=== PATIENT | female | born 1955 | race Caucasian/White ===

== ENCOUNTER → 2017-01-26 | Day surgery (SDC) | payer OTHER ==
--- NOTE | 2017-01-25 09:33 | PREOPHP ---
DATE OF ADMISSION: 01/26/2017 HISTORY OF PRESENT ILLNESS: This 61-year-old patient is admitted for elective cataract surgery of t he right eye. The patient has had decreased vision over the past 6 months, which has been progressi ve in nature without prior history of eye disease or injury. 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 This diagnosis is somewhat questionable, but patient remains o n Timolol and latanoprost drops in both eyes. The patient's systemic history is positive for nonins ulin dependent diabetes mellitus and systemic hypertension. CURRENT MEDICATIONS INCLUDE: 1. Metformin. 2. Benazepril. ALLERGIES: THERE ARE NO KNOWN ALLERGIES. PHYSICAL EXAMINATION: Visual acuity with best correction is 20/60 in the right eye and 20/40 in the left eye. Slit lamp examination reveals nuclear sclerotic and posterior subcapsular cataract sears es in both eyes. Applanation tonometry is 18 mmHg. Examination of the retina reveals enlarged cup to disk ratio present in both eyes. There does not appear to be any evidence of diabetic retinopath y. DIAGNOSIS: Cataract, right eye. PLAN: Cataract extraction with lens implant, right eye. The risks and alternatives to the surgery have been discussed with the patient as well as the hope for improvement of visual acuity leading to greater ability to perform activities of daily living. The patient understands this and agrees to proceed with surgery. Dictated By: MARCIANO SOMERS/GREGG Conf#: [id number] DID#: [id number]
[~2017-01-26] VITALS: Ht 172.7 cm; Wt 64.6 kg
[2017-01-26] VITALS (10 sets, daily range): BP systolic 119–158; BP diastolic 69–89; PULSE 78–97; RESP 12–24; Ht 172.7 cm; Wt 64.6 kg
[~2017-01-26] MED LIST: CARBACHOL 0.01% 1.5 ML OPH INJ ONE; CEFAZOLIN 1 GM INJ ONE; CYCLOPENTOLATE/PHENYLEPH 2 ML OPH OPER SCH; DEXAMETHASONE 4 MG/ML 1 ML INJ ONE; DICLOFENAC 0.1% 2.5 ML OPH OPER SCH; EPINEPHrine 1 MG INJ ONE; FENTAnyl 50 MCG/ML VIAL IV PRN; GENTAMICIN 80 MG INJ ONE; HYDROmorphONE (0.2 MG/ML) 10ML SYG IV PRN; INSULIN ASPART [NOVOLOG] 3 ML PEN SC ONE; LABETALOL HCL 20MG INJ IV PRN; LIDOCAINE 1% (STERILE-PAK) 30 ML INJ ONE; LIDOCAINE 4% (MPF) 5 ML INJ ONE; MEPERIDINE 25 MG INJ IV PRN; MOXIFLOXACIN 0.5% 3 ML OPH OPER SCH; MTF1000T PO; ONDANSETRON 4 MG INJ IV PRN; PROPOFOL 20 ML ONE; SOD CHLORIDE 0.9% 1,000 ML IV SCH; TROPICAMIDE 1% 3ML OPH OPER SCH; hydrALAzine 20 MG INJ IV PRN
--- NOTE | 2017-01-26 06:20 | RADRPT ---
PROCEDURE: CHEST - 1 VIEW CLINICAL INDICATION: 61-year-old female who is preoperative for cataract surgery. TECHNIQUE: A single frontal AP semi-erect portable view of the chest was performed. The images we re reviewed on a PACS workstation. COMPARISON: None. FINDINGS: The cardiomediastinal silhouette has a normal appearance. There is no evidence for an infiltrate. There is no evidence for congestive heart failure. There is no evidence for pneumothorax. The osseou s structures are intact. IMPRESSION: No evidence for active cardiopulmonary disease. .Blanco Coulter MD, MD Date Time Electronically viewed and signed by .Blanco Coulter MD, on 01/26/2017 06:20 .M/
--- NOTE | 2017-01-26 08:13 | SIPON ---
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
--- NOTE | 2017-01-26 10:31 | OPR ---
DATE OF OPERATION: 01/26/2017 PREOPERATIVE DIAGNOSIS: Cataract, right eye. POSTOPERATIVE DIAGNOSIS: Cataract, right eye. SURGEON: Marciano Westfall MD ANESTHESIA: Local standby. ANESTHESIOLOGIST: Dr. Castrejon OPERATION PERFORMED: Cataract extraction with lens implant, right eye. PROCEDURE: The patient was brought to the operating room and placed on the table with an IV in plac e and the patient attached to an flight operations dispatch clerk. Oxygen was given via face mask. After some intravenous sedation was administered, local anesthesia was given using Xylocaine 2% with epinephrine, mixed with Marcaine 0.5%. This was given in a lid block and retrobulbar injection. The patient was then prepped and draped in the usual sterile manner. A wire lid speculum was inserted between the lids of the right eye. A Superblade was used to enter t he anterior chamber at the corneoscleral limbus at the 10:30 o'clock position. A separate incision w as made using a 3.0-mm keratome which entered the corneoscleral junction at the 12 o'clock position. Through this 3-mm opening, an irrigating cystotome was introduced into the anterior chamber. The ch armando was filled with Provisc and an anterior capsulotomy was performed. Balanced salt solution was then used for hydrodissection of the lens. A phacoemulsification handpiece was then brought into th e field and introduced into the anterior chamber. The lens nucleus was emulsified using a deep groov e and cracking the nucleus into quadrants. Following this, each quadrant was aspirated and emulsifie d at the pupillary margin. After this was completed, the irrigation/aspiration handpiece was brought to the field, introduced i nto the posterior chamber, and the lens cortical material was removed. When this was completed, nessa tional Viscoat was injected into the anterior and posterior chambers. The 3-mm opening had its internal lips enlarged, and then the posterior chamber intraocular lens traci suring 20.5 diopters ([employer] model LI61A0) was then injected into the posterior chamber using the lens injector system. After the leading haptic was introduced into the capsular b ag and the lens optic was present in the center of the eye, the injector was removed and the trailin g haptic was grasped with non-toothed forceps and introduced into the capsular fold superiorly. A Si nskey hook was then used to rotate the intraocular lens so that the lips were oriented in the horizo ntal meridian. One 10-0 nylon suture was placed across the wound. Prior to tying, the irrigation/aspiration handpiece was reintroduced into the anterior chamber to re move the Viscoat. Miochol was instilled to constrict the pupil, and then the 10-0 nylon suture was t ied. The ends were cut short and then the knot was buried. Then, 0.5 mL of dexamethasone and 0.5 mL of Ancef were injected into the sub-Tenon space in the infe rior fornix. Ciloxan drops were then placed on the surface of the eye. The speculum was removed and a patch was applied. The patient then left the operating room in satisfactory condition. Dictated By: MARCIANO SOMERS/GREGG Conf#: [id number] DID#: [id number]
== END | disposition home or self-care (01) ==
LOC: SDS 05:27
PROVIDERS: ATTEND Ophthalmology
DX: H25.11 Age-related nuclear cataract, right eye (principal); E78.5 Hyperlipidemia, unspecified; I10 Essential (primary) hypertension
CPT/HCPCS: 66984; 71010; 82962; J0171; J0690; J1100; J1580; J1815; J2405; V2632; Z7512; Z7610